=== PATIENT | male | born 1955 | race Caucasian/White ===

== ENCOUNTER 2020-07-05 18:04 | Emergency (ER) | payer OTHER ==
--- OUTSIDE RECORDS SUMMARY | 2020-07-05 18:07 | XMS REPORT | Continuity of Care Document ---
:1955 Author Organization [facility] t Address [address] [place] [address] Care Team Providers Name Role Phone BRET Primary Care Physician Unavailable Jhony CAMEJO Attending Clinician Ray OROZCO Attending Clinician Julia MASTERSON Attending Clinician Martha OROZCO E Attending Clinician Hany THOMAS Attending Clinician Unavailable Anirudh CHUNG, R Attending Clinician Unavailable Payers Payer Name Policy Type Policy Number Effective Date Expiration Date Lorna CURIEL MANAGED [id number] 2017 MD Aleksandra BECKCIGNA O 00:00:00 POS OPEN [id number] 2017-Freddie tHMO Problems Condition Condition Condition Status Onset Resolution Last Treating Co mments Source Name Details Category Date Date Treatment Clinician Date Dyslipidem Dyslipidem Disease Active 2018-03 Last M D ia ia 2-27 Assessmen Anderso 00:00: t & Plan: n 00 Lipid panel done today shows a total cholester ol of 145, LDL 66, triglycer ides 128. Healthy lifestyle modificat ions were reinforce d. Patient will continue atorvasta tin 20 mg daily as he has known carotid artery atheroscl erosis and history of radiation therapy. Encounter Encounter Disease Active for for 7-15 Anderso follow-up follow-up 00:00: n examinatio examinatio 00 n after n after completed completed treatment treatment for for malignant malignant neoplasm neoplasm History of History of Disease Active M D antineopla antineopla 7-15 An derso stic stic 00:00: n chemothera chemothera 00 py py H/O: H/O: Disease Active 2016-03 Last radiation radiation 05-14 Assessmen Cristina nderso exposure exposure 00:00: t & Plan: n 00 Patient has a history of radiation therapy completed in 2014 to the neck area. He is therefore at increased risk for developme nt of atheroscl erosis in the carotid arteries as noted above. We will therefore continue with risk factor modificat ion and symptom assessmen ts. Carotid Carotid Disease Active 2016-03 Last atheroscle atheroscle 05-14 Assessmen Silasbernadette randy rosis 00:00: t & Plan: n 00 Due to patient's history of radiation therapy to the neck, baseline carotid ultrasoun ds have been obtained to assess any significa nt degree of plaquing and stenosis. Most recent CT angiogram imaging done today showed common carotid arteries with mild atheroscl erotic plaque in the bilateral carotid bifurcati ons without significa nt stenosis in bilateral internal carotid arteries that were patent without significa nt stenosis. Most recent carotid ultrasoun d in 02/2018 showed a right internal carotid artery that could not be visualize d beyond the proximal segment therefore making it unable to previousl y report small soft plaque noted previousl y in 2015. Patient remains asymptoma tic with no unilatera l weakness, speech disturban cyrus, facial drooping, or amaurosis fugax. Now that we have obtained more definitiv e CT angiogram imaging with no significa nt stenoses visualizi ng beyond the field of the prior carotid ultrasoun d, repeat imaging will be again considere d in 3 to 5 years or sooner should he develop any CVA/TIA symptoms. Oropharyng Oropharyng Disease Active 2014-03 M D eal eal 0-28 Anderso dysphagia dysphagia 00:00: n 00 Malignant Malignant Disease Active neoplasm neoplasm 12-08 Joseluis o of of 00:00: n posterior posterior 00 third of third of tongue tongue Allergies, Adverse Reactions, Alerts This patient has no known allergies or adverse reactions. Family History Family Member Diagnosis Comments Start Date Stop Date Source Cousin Breast cancer MD Hayes Paternal aunt Breast cancer Rex griselda Paternal aunt Cancer MD Hayes Paternal grandfather Cancer MD Evans nderstay Family member Diabetes MD Hayes Family member Glaucoma MD Hayes Family member Heart disease Rexbartolome villalobos Family member Macular degeneration Autumn Hayes Social History Social Habit Start Date Stop Date Quantity Comments Source History of tobacco Current smoker MD Hayes use Sex Assigned At MD Huggins on Exposure to Not sure MD Hayes SARS-CoV-2 (event) Cigarettes smoked 2020-07-03 2020-07-03 MD Balwinder diop current (pack per 00:00:00 00:00:00 day) - Reported Cigarette 2020-07-03 2020-07-03 MD Hayes pack-years 00:00:00 00:00:00 Tobacco use and 2020-07-03 2020-07-03 Former user MD Rex villalobos exposure 00:00:00 00:00:00 Alcohol intake 2020-07-03 2020-07-03 Current MD Aleksandra tanner 00:00:00 00:00:00 non-drinker of alcohol (finding) Tobacco Comment 2015-05-29 2015-05-29 8 pack year MD Rex villalobos 00:00:00 00:00:00 history of cigarettes and quit 35 years ago. quit tobacco: 2009. Smoking Status Start Date Stop Date Source Former smoker 2020-07-03 00:00:00 2020-07-03 00:00:00 MD Rex villalobos Medications Ordered Filled Start Stop Current Ordering Indication Dosage Frequency Signature Comments Components Source Medication Medication Date Date Medication? Clinician (SIG) Name Name acetaminoph Yes 500mg Take 500 M D en 4-19 mg by Anderso (TYLENOL) 18:59: mouth as n 500 mg 34 needed for tablet mild pain. atorvastati Yes Dyslipidemi 20mg Take 1 MD n (LIPITOR) 4-19 a tablet (20 An derso 20 mg 00:00: mg) by n tablet 00 mouth daily. atorvastati 2020- No Hyperlipide TAKE 1 MD n (LIPITOR) - 04-19 brandon, not TABLET BY Anderso 20 mg 00:00: 00:00 otherwise MOUTH n tablet 00 :00 specified EVERYDAY AT BEDTIME atorvastati 2020- No Hyperlipide TAKE 1 MD n (LIPITOR) 205-15 brandon, not TABLET BY Anderso 20 mg 00:00: 00:00 otherwise MOUTH n tablet 00 :00 specified EVERYDAY AT BEDTIME sodium 2018-0 Yes Need for Apply to fluoride-po 7-16 Prophylacti teeth Anderso tassium 00:00: c fluoride twice n nitrate 00 administrat daily. (PREVIDENT ion 5000 SENSITIVE) 1.1%-5% pste dental paste SYNTHROID Yes Hypothyroid 100ug Take 1 100 mcg 9-13 ism tablet Anderso tablet 00:00: following (100 mcg) n 00 external by mouth radiotherap daily. y Immunizations Ordered Immunization Filled Immunization Date Status Commen ts Source Name Name Miranda SARS-CoV-2 2020-06-03 Completed Vaccination 00:00:00 Vital Signs Vital Name Observation Time Observation Value Comments Source Oxygen saturation in 2020-07-03 19:00:01 99 /min MD Hayes Arterial blood by Pulse oximetry Systolic blood pressure 2020-07-03 19:00:01 137 mm[Hg] MD Hayes Diastolic blood pressure 2020-07-03 19:00:01 81 mm[Hg] MD Hayes Heart rate 2020-07-03 19:00:01 66 /min MD Rex villalobos Body temperature 2020-07-03 19:00:01 36.72 Sloane MD Cristina harry Respiratory rate 2020-07-03 19:00:01 20 /min MD Cristina harry Body weight 2020-07-03 19:00:01 93.5 kg MD Rex villalobos BMI 2020-07-03 19:00:01 31.98 kg/m2 MD Rex villalobos Body height 2019-11-01 16:17:00 171 cm MD Rex villalobos Procedures Procedure Date / Time Performed Performing Clinician Sourc e CTA NECK W WO CONTRAST 2020-07-03 18:07:49 Dariel Booker MD BASIC METABOLIC PANEL, CALCIUM 2020-07-03 15:43:00 Dariel Booker MD TOTAL LIPID PANEL 2020-07-03 15:43:00 Dariel Booker MD GLUCOSE LEVEL 2020-07-03 15:43:00 Dariel Booker MD BLOOD UREA NITROGEN 2020-07-03 15:43:00 Dariel Booker MD ELECTROLYTE PANEL 2020-07-03 15:43:00 Dariel Booker MD SERUM CREATININE 2020-07-03 15:43:00 Dariel Booker MD .GLOMERULAR FILTRATION RATE 2020-07-03 15:43:00 Dariel Booker MD CALCIUM LEVEL TOTAL 2020-07-03 15:43:00 Booker Dariel OROZCO Rex villalobos XR CHEST 2 VW 2019-11-01 16:09:52 Dana Dumont MD on FREE THYROXINE 2019-11-01 15:51:00 Dana Dumont MD on THYROID STIMULATING HORMONE 2019-11-01 15:51:00 Christiano Dumont MD OCT, RETINA - OU - BOTH EYES 2019-10-22 18:36:13 Darnell Thomas MD Encounters Start End Encounter Admission Attending Care Care Encounter Source Date/Time Date/Time Type Type Clinicians Facility Department ID 2019-10-22 2019-10-22 Outpatient NICOLETTE THOMAS [facility] [id number] 00:00:00 00:00:00 CHRIS Joseluis o n Results Test Description Test Time Test Comments Results Result Sourc e Comments CT Angiogram Neck 2020-07-03 No hemodynamically MD Hayes with and without 19:30:21 significant stenosis Contrast of the cervical vessels.Interface, Radiology Results In - 07/03/2020 2:32 PM CDTFULL RESULT:EXAMINATION: CTA NECK W WO CONTRAST on 07/03/2020 1:07 PMCOMPARISON: CT neck, 09/28/2018.HISTORY: Carotid atherosclerosis; history of radiation exposureINDICATION: Carotid artery diseaseTECHNIQUE: CT Angiogram of the neck was performed without and with IV contrast as per standard departmental protocol. Post-processed coronal, sagittal and 3D- reformatted images were also obtained.FINDINGS: AORTA AND GREAT VESSELS: There is a three-vessel left-sided aortic arch. The origins of the great vessels are patent without significant stenosis. CAROTID ARTERIES:The bilateral common carotid arteries are patent without hemodynamically significant stenosis. There is mild atherosclerotic plaque in the bilateral carotid bifurcations, without hemodynamically significant stenosis.The bilateral internal carotid arteries are patent without significant stenosis. The bilateral external carotid arteries are patent.The left vertebral artery is dominant. The bilateral vertebral arteries are patent without significant stenosis.The visualized portions of the upper lung monet, lower brain parenchyma and orbits are within normal limits. IMPRESSION:No hemodynamically significant stenosis of the cervical vessels. Electrolyte Panel 2020-07-03 16:27:18 Test Item Value Reference Range Interpretation Comme nts Sodium Lvl (test code = 140 See_Comment [Au tomated message] The 7314) system which ge nerated this result tra nsmitted reference range : 136 - 145 mEq/L. The refe rence range was not used to interpret this result as normal/abnormal . Potassium Lvl (test code 4.7 See_Comment [A utomated message] The = 8615) system which ge nerated this result tra nsmitted reference range : 3.5 - 5.1 mEq/L. The refe rence range was not used to interpret this result as normal/abnormal . Chloride (test code = 103 See_Comment [Auto mated message] The 0977) system which ge nerated this result tra nsmitted reference range : 98 - 107 mEq/L. The refe rence range was not used to interpret this result as normal/abnormal . CO2 (test code = 5227) 30 See_Comment H [Aut omated message] The system which ge nerated this result tra nsmitted reference range : 22 - 29 mEq/L. The refe rence range was not used to interpret this result as normal/abnormal . Anion Gap (test code = 7 See_Comment [Aut omated message] The 9324) system which ge nerated this result tra nsmitted reference range : 4 - 14 mEq/L. The refe rence range was not used to interpret this result as normal/abnormal . AUGIE (test code = AUGIE) Coordinate labs on AM of cardio visit and prior to CTA Lab Interpretation (test Abnormal code = 64855-7) MD HayesGlomerular Filtration [id number] 16:27:17 Test Item Value Reference Range Interpretation Comments eGFR-AA (test 92 See_Comment Normal eGFR: >= 60 code = 8062) mL/min/1.73 m2N ote: The eGFR is errol culated using the CKD-E PI equation. The e GFR declines with a ge. eGFR <60 mL/min /1.73 m2 is considere d as "decreased". Th is equation should only be used for pat ients 18 and older. According to th e National Kidney Foundation's Ki dney Disease Outcome Quality Initiat hossein (KDOQI) classif ication and 2012 Kidney Disease Improvi ng Global Outcomes (KDIGO) Clinica l Practice Guidel ine, the stage of CK D should be categ orized based on estima cuauhtemoc GFR. Stage Desc ription GFR mL/mi n/1.73 m21 Normal or h igh GFR >=902 Mildly decreased GFR 60-893a M ildly to moderately decreased GFR 45-593b Moderat stefanie to severely decrea sed GFR 30-444 Nica rely decreased GFR 15-295 Kidney f ailure <15 [Auto mated message] The sy stem which generated this result transmit cuauhtemoc reference range : >=60 mL/min/1.73 sq. m. The reference range was not used to int erpret this result as normal/abnormal . eGFR-MINERVA 80 See_Comment Normal eGFR: > = 60 (test code = mL/min/1.73 m2N ote: 8060) The eGFR is errol culated using the CKD-E PI equation. The e GFR declines with a ge. eGFR <60 mL/min /1.73 m2 is considere d as "decreased". Th is equation should only be used for pat ients 18 and older. According to th e National Kidney Foundation's dney Disease Outcome Quality Initiat hossein (KDOQI) classif ication and 2012 Kidney Disease Improvi ng Global Outcomes (KDIGO) Clinica l Practice Guidel ine, the stage of CK D should be categ orized based on estima cuauhtemoc GFR. Stage Desc ription GFR mL/mi n/1.73 m21 Normal or h igh GFR >=902 Mildly decreased GFR 60-893a M ildly to moderately decreased GFR 45-593b Moderat stefanie to severely decrea sed GFR 30-444 Nica rely decreased GFR 15-295 Kidney f ailure <15 [Auto mated message] The sy stem which generated this result transmit cuauhtemoc reference range : >=60 mL/min/1.73 sq. m. The reference range was not used to int erpret this result as normal/abnormal . AUGIE (test Coordinate labs on code = AUGIE) AM of cardio visit and prior to CTA MD HayesCalcium [id number] 16:27:16 Test Item Value Reference Range Interpretation Comments Calcium Lvl (test code = 10.3 mg/dL 8.4-10.2 H 5258) AUGIE (test code = AUGIE) Coordinate labs on AM of cardio visit and prior to CTA Lab Interpretation (test Abnormal code = 35792-7) MD [id number] 16:27:14 Test Item Value Reference Range Interpretation Comments BUN (test code = 16 mg/dL 6-23 5055) AUGIE (test code = Coordinate labs on AM of AUGIE) cardio visit and prior to CTA MD Hayes.Serum [id number] 16:27:13 Test Item Value Reference Range Interpretation Comments Creatinine (test code = 0.99 mg/dL 0.67-1.17 5399) AUGIE (test code = AUGIE) Coordinate labs on AM of cardio visit and prior to CTA MD HayesGlucose [id number] 16:27:12 Test Item Value Reference Range Interpretation Comments Glucose Level 88 mg/dL 70-99 Effective 10/10, (test code = the glucose 5699) reference inter vals have been updat ed based on [place] an Diabetes Association guidelines (Standards of Medical Care in Diabetes 2016. Diabetes Care 2 016; 39: S13-S22).Fastin g blood glucose:Normal: 70 99 mg/dLImpaire d fasting glucose (increased risk for diabetes or pre-diabetes): 100 125 mg/dLDiabet es mellitus: >/=1 26 mg/dL Random bl ood glucose:Normal: 70 199 mg/dLNote: Random glucose >100 mg/dL is associ ated with increased risk for diabetes AUGIE (test code = Coordinate labs on AUGIE) AM of cardio visit and prior to CTA MD HayesLipid [id number] 16:24:53 Test Item Value Reference Range Interpretation Comments Chol (test 145 mg/dL See_Comment ATP III Classif ication code = 5283) of Total Choles terol Primary Target of Therapy (in mg/dL):<200 [id number] 9 Borderline high >=240 High [Auto mated message] The sy stem which generated this result transmit cuauhtemoc reference range : <=199. The refe rence range was not u sed to interpret this result as normal/abnor mal. Trig (test 128 mg/dL See_Comment ATP III Classif ication code = 7655) of Serum Trigly cerides Primary Target of Therapy (in mg/dL):<150 Epkhpz476-684 Borderline high 200-499 High>=500 Very highNon-fa sting triglycerides > 200 mg/dL may be fo llowed up with a fasti ng Lipid Panel. Calculated LDL- C may be falsely decr eased when non-fastin g triglycerides > 200 mg/dL. [Automa cuauhtemoc message] The sy stem which generated this result transmit cuauhtemoc reference range : <=149. The refe rence range was not u sed to interpret this result as normal/abnor mal. HDL (test 53 mg/dL See_Comment [Automated mes letty] code = 5763) The system [employer] generated this result transmitted ref erence range: >=40. Th e reference range was not used to int erpret this result as normal/abnormal . LDL (test 66 mg/dL See_Comment ATP III Classif ication code = 6123) of LDL Choleste rol Primary Target of Therapy (in mg/dL):<100 Epkwpnd057-916 Near optimal/above -174 Borderline high 160-189 High>=190 Very high [Automated mess age] The system [employer] generated this result transmitted ref erence range: <=100. T he reference range was not used to int erpret this result as normal/abnormal . VLDL (test 26 mg/dL code = 7986) AUGIE (test Coordinate labs on code = AUGIE) AM of cardio visit and prior to CTA MD [id number] 17:21:43 Test Item Value Reference Range Interpretation Comments TSH (test code = 1.15 See_Comment [Automated message] The 7578) system which ge nerated this result transmit cuauhtemoc reference range : 0.27 - 4.20 mcunit/mL. The reference range was not used to interpr et this result as desmond l/abnormal. MD Campos [id number] 17:21:42 Test Item Value Reference Range Interpretation Comments T4 Free (test code = 7502) 1.33 ng/dL 0.93-1.7 MD HayesX-ray Chest 2 [id number] 16:17:11No evidence of intrathoracic metastasis or acute cardiopulmonary disease. Interface, Radiology Results In - 11/01/2019 11:19 AM CDTFULL RESULT:Examination: Chest, 2 views, 11/01/2019 11:09 AM.Clinical History: Malignant neoplasm of posterior third of tongueHistory of radiation therapyHistory of antineoplastic chemotherapy.Indication: Evaluation of Disease Progression.Comparison: 09/28/2018.Technique: Posteroanterior, lateral, and dual-energy radiographs of the chest.Findings:The cardiomediastinal silhouette is unremarkable.No pulmonary nodule, mass or consolidation is seen. There are no pleural effusions. No pneumothorax.IMPRESSION:No evidence of intrathoracic metastasis or acute cardiopulmonarydisease.MD HayesOCT, Retina - OU - Both [id number] 20:56:16OD: wnl;OS: +VMA with mild tractionMD Hayes
--- NOTE | 2020-07-05 20:27 | ER ---
Nurse's Notes [facility] Name: Jinny Fountain Age: 65 yrs Sex: Male : 1955 Arrival Date: 07/05/2020 Time: 18:04 Bed Waiting Private MD: Diagnosis: Presentation: 07/05 18:14 Chief complaint: Patient states: Tripped and fell at 1500 today. Fell onto tree stump ll1 to his left lower back. Bruising noted. No LOC or head injury. No blood thinners. Coronavirus screen: Client denies travel out of the [place] in the last 14 days. At this time, the client does not indicate any symptoms associated with coronavirus-19. Ebola Screen: Patient denies travel to an Ebola-affected area in the 21 days before illness onset. Initial Sepsis Screen: Does the patient meet any 2 criteria? HR > 90 bpm. No. Patient's initial sepsis screen is negative. Does the patient have a suspected source of infection? Yes: Bone or joint infection. Risk Assessment: Do you want to hurt yourself or someone else? Patient reports no desire to harm self or others. Onset of symptoms was July 05, 2020. 18:14 Method Of Arrival: Ambulatory ll1 18:14 Acuity: EDGARDO 4 ll1 Historical: - Allergies: 18:13 No Known Allergies; ll1 - PMHx: 18:13 Hypothyroidism; High Cholesterol; ll1 - PSHx: 18:13 knee sx/jaw sx; stage 4 squamous cell carcinoma; ll1 - Immunization history:: Client reports receiving the 1st dose of the Covid vaccine, Flu vaccine is not up to date. - Social history:: Smoking status: Patient denies any tobacco usage or history of. Assessment: 20:24 Reassessment: called, no answer. ca1 20:24 Reassessment: Reassessment: Attempted to call pt on the phone twice, no answer. ca1 Vital Signs: 18:14 BP 109 / 90; Pulse 95; Resp 16; Temp 98.2; Pulse Ox 100% ; Weight 92.99 kg; Height 5 ll1 ft. 9 in. (175.26 cm); Pain 7/10; 18:14 Body Mass Index 30.27 (92.99 kg, 175.26 cm) ll1 ED Course: 18:04 Patient arrived in ED. am2 18:09 Arm band placed on. ll1 18:15 Triage completed. ll1 20:19 Beth Lunsford, RN is Primary Nurse. ca1 20:27 Patient's name was called from ER lobby. No response. Unable to locate patient. Will ca1 disposition as left without being seen by a provider. Administered Medications: No medications were administered Outcome: 20:27 Patient left the ED. ca1 Signatures: Radha Montalvo am2 Beth Lunsford RN RN ca1 Mavis Foster RN RN 1 Corrections: (The following items were deleted from the chart) 20:25 20:24 Reassessment: ca1 ca1
[2020-07-05 20:30] VITALS: BP 109/90; TEMP 98.2; O2SAT 100
== END 2020-07-05 20:27 | disposition left against medical advice (07) ==
LOC: ER 18:04
DX: Z53.21 Procedure and treatment not carried out due to patient leaving prior to being seen by health care provider (principal)
CPT/HCPCS: 99281